=== PATIENT | male | born 1955 | race Caucasian/White ===

== ENCOUNTER 2018-10-22 05:36 | Inpatient (IN) | payer OTHER ==
[2018-10-19 17:03] VITALS: BMI 33.4
[~2018-10-22] VITALS: Ht 190.5 cm; Wt 123.9 kg
[2018-10-22] VITALS (22 sets, daily range): BP systolic 94–140; BP diastolic 53–83; PULSE 72–99; RESP 16–18; Ht 190.5 cm; Wt 123.9 kg
[~2018-10-22 05:36] MED LIST: CLON0.2T5 PO; LEVO-86 PO; LOSA1TAB28 PO
--- NOTE | 2018-10-22 06:45 | PREAC ---
Date/Time of Note Date/Time of Note DATE: 10/22/18 TIME: 06:44 Anesthesia Eval and Record Evaluation Time Pre-Procedure Interview DATE: 10/22/18 TIME: 06:44 Age 63 Sex male NPO: 8 hrs Preoperative diagnosis lumbar spinal stenosis Planned procedure decompressive lumbar laminectomy L3-L4 Past Medical History Past Medical History: Includes Cardio: HTN Endo: Hypothyroid GI: Obesity Surgery & Anesthesia Issues Hx of PONV Meds Anticoagulation: No Beta Sarah within 24 hr: No Reason Beta Sarah not given: Pt. not on B-Sarah Reported Medications Clonidine Hcl* (Clonidine Hcl*) 0.2 Mg Tablet, 0.2 MG PO BID, TAB 10/19/18 Losartan-Hydrochlorothiazide (Losartan-HCTZ) 100-12.5 Mg Tab, 1 TAB PO DAILY, TAB 10/19/18 Levothyroxine Sodium* (Synthroid*) 100 Mcg Tablet, 100 MCG PO BEFORE BREAKFAST, #30 TAB 10/19/18 Current Medications Cefazolin Sodium/ Dextrose 50 ml @ 100 mls/hr PRE-OP ONCE IVPB Last administered on 10/22/18at 06:34; Admin Dose 100 MLS/HR; Start 10/22/18 at 07:00; Stop 10/22/18 at 07:29 Lactated Ringer's 1,000 ml @ 0 mls/hr Q0M IV* Last administered on 10/22/18at 06:34; Admin Dose 20 MLS/HR; Start 10/22/18 at 07:00; Stop 10/22/18 at 20:00 Meds reviewed: Yes Allergies Uncoded Allergies: IV CONTRAST (Allergy, Unknown, 10/19/18) pt says that his kidney shut down Allergies Reviewed: Yes Labs/Studies Labs Reviewed: Reviewed by anesthesiologist Blood Bank Test 10/22/18 06:38 Blood Product Summary Counts test: N/A Studies: ECG, CXR Pre-procedure Exam Airway: Adequate mouth opening, Adequate thyromental dist Mallampati: Mallampati II Teeth: Normal Lung: Normal Heart: Normal ASA Physical Status ASA physical status: 2 Emergency: None Planned Anesthetic General/MAC: ETT Planned Pain Management Parenteral pain med Pre-operative Attestations Prior to commencing anesthesia and surgery, the patient was re-evaluated, there was verification of: *The patient's identity *The results of appropriate recent lab work and preoperative vital signs *The above evaluation not changing prior to induction *Anesthetic plan, risk benefits, alternative and complications discussed with patient/family; questions answered; patient/family understands, accepts and wishes to proceed. SERGE SNEED MD Oct 22, 2018 06:45
[2018-10-22] MEDS ORDERED: LACTATED RINGER'S 1,000 ML IV* SCH (07:00)
[2018-10-22] MEDS ORDERED: CEFAZOLIN 2 GM/50 ML (PMX) 50 ML IVPB ONE (07:00)
--- NOTE | 2018-10-22 07:01 | HPN ---
Date/Time of Note Date/Time of Note DATE: 10/22/18 TIME: 07:01 Interval H&P Admission Note Pt. seen H&P reviewed: No system changes DALI DAMICO MD Oct 22, 2018 07:01
[2018-10-22] MEDS ORDERED: MIDAZOLAM 1 MG/ML 2 ML INJ ONE (07:10)
[2018-10-22] MEDS ORDERED: POLYMYXIN/BACITRACIN 1L IRRIG ONE (07:37)
[2018-10-22] MEDS ORDERED: BUPIVACAINE 0.25% (MPF) 30 ML INJ ONE (07:37)
[2018-10-22] MEDS ORDERED: SUCCINYLCHOLINE CHLORIDE 100 MG/5 ML SYG IV ONE (07:48)
[2018-10-22] MEDS ORDERED: METOCLOPRAMIDE 10 MG INJ ONE (07:48)
[2018-10-22] MEDS ORDERED: PROPOFOL 40 ML ONE (07:48)
[2018-10-22] MEDS ORDERED: ONDANSETRON 4 MG INJ ONE (07:48)
[2018-10-22] MEDS ORDERED: LIDOCAINE 2% (SDV) 5 ML INJ ONE (07:48)
[2018-10-22] MEDS ORDERED: ROCURONIUM 50 MG INJ ONE (07:48)
[2018-10-22] MEDS ORDERED: FAMOTIDINE 20 MG INJ ONE (07:48)
[2018-10-22] MEDS ORDERED: DEXAMETHASONE 4 MG/ML 5 ML INJ ONE (07:48)
[2018-10-22] MEDS ORDERED: EPHEDrine 25 MG/5 ML SYG ONE (07:50)
[2018-10-22] MEDS ORDERED: NEOSTIGMINE 3 MG/3 ML SYRINGE ONE (09:39)
[2018-10-22] MEDS ORDERED: GLYCOPYRROLATE 0.4 MG INJ ONE ×2 (09:39→09:47)
[2018-10-22] MEDS ORDERED: LABETALOL HCL 20MG INJ IV PRN (10:00)
[2018-10-22] MEDS ORDERED: MEPERIDINE 25 MG INJ IV PRN (10:00)
[2018-10-22] MEDS ORDERED: PROCHLORPERAZINE 10 MG INJ IV PRN (10:00)
[2018-10-22] MEDS ORDERED: hydrALAzine 20 MG INJ IV PRN (10:00)
[2018-10-22] MEDS ORDERED: FENTAnyl 50 MCG/ML VIAL IV PRN ×3 (10:00)
[2018-10-22] MEDS ORDERED: ONDANSETRON 4 MG INJ IV PRN ×2 (10:00→10:30)
[2018-10-22] MEDS ORDERED: HYDROmorphONE 1 MG/5 ML IV SYRINGE IV PRN ×3 (10:00)
[2018-10-22] MEDS ORDERED: DIPHENHYDRAMINE 50 MG INJ IV PRN (10:00)
--- NOTE | 2018-10-22 10:25 | PAC ---
Date/Time of Note Date/Time of Note DATE: 10/22/18 TIME: 10:25 Post-Anesthesia Notes Post-Anesthesia Note Last documented vital signs Vital Signs Date Temp Pulse Resp B/P (MAP) Pulse Ox O2 O2 Flow FiO2 Time Delivery Rate 10/22/18 97.8 72 18 140/81 97 Room Air 06:51 (100) Activity: WNL Respiratory function: WNL Cardiovascular function: WNL Mental status: Baseline Pain reasonably controlled: Yes Hydration appropriate: Yes Nausea/Vomiting absent: Yes Comments BP: 122/69 HR: 81 RR: 15 T: 98.5 SaO2: 99% SERGE SNEED MD Oct 22, 2018 10:25
[2018-10-22] MEDS: DEXTROSE 5%-0.45% NACL 1,000 ML IV SCH ×2 (10:27→20:22)
[2018-10-22] MEDS ORDERED: DIAZEPAM 5 MG TAB PO PRN (10:30)
[2018-10-22] MEDS ORDERED: ZOLPIDEM 5 MG TAB PO PRN (10:30)
[2018-10-22] MEDS ORDERED: DIAZEPAM 5 MG/ML SYG IM PRN (10:30)
[2018-10-22] MEDS ORDERED: NALOXONE (0.4 MG/ML) INJ IV PRN (10:30)
[2018-10-22] MEDS ORDERED: HYDROCODONE/APAP (5/325) TAB PO PRN (10:30)
[2018-10-22] MEDS ORDERED: AL HYDROX/MG HYDROX/SIMETH 30 ML CUP PO PRN (10:30)
[2018-10-22] MEDS ORDERED: DIPHENHYDRAMINE 50 MG CAP PO PRN (10:30)
[2018-10-22] MEDS ORDERED: ACETAMINOPHEN 325 MG TAB PO PRN (10:30)
[2018-10-22] MEDS ORDERED: BETHANECHOL 25 MG TAB PO PRN (10:30)
[2018-10-22] MEDS ORDERED: CEPASTAT LOZENGE MT PRN (10:30)
[2018-10-22] MEDS ORDERED: NACL 0.9% 3 ML SYG IV SCH (10:30)
[2018-10-22] MEDS ORDERED: HYDROmorphONE 0.2 MG/ML PCA IV SCH (10:30)
[2018-10-22] MEDS ORDERED: TRIMETHOBENZAMIDE 100 MG/ML VIAL IM PRN (10:30)
[2018-10-22] MEDS ORDERED: PROCHLORPERAZINE 10 MG TAB PO PRN (10:30)
--- NOTE | 2018-10-22 10:35 | SIPON ---
Date/Time of Note Date/Time of Note DATE: 10/22/18 TIME: 10:32 Operative Report Preoperative Diagnosis Spinal Stenosis L3, L4, and L5 right Postoperative Diagnosis same Operation/Procedure Performed Central decompressive laminectomy at L3 Central decompressive laminectomy at L4 Right hemilaminotomy L5 Medial facetectomy and foraminotomy L3-4, L4-5, bilaterally and L5-S1 on the right Cosmetic wound closure (15 cm) Lateral localizing lumbar radiographs (2) Intraoperative nerve monitoring (3.5 hours) Surgeon see signature line photographer assistant Susan Patel PA-C Anesthesia: general Estimated blood loss: 150 - 200 ml's Transfusion Required none Specimen Spinous processes of L3 and L4 Grafts/Implants none Complications none DALI DAMICO MD Oct 22, 2018 10:35
--- NOTE | 2018-10-22 11:36 | NUR ---
PACU TRANSFERRED TO 404A IN STABLE COND. DENIES PAIN OR DISCOMFORT AT THIS TIME , PER PT. PT INSTRUCTED ON USE OF DISTRICT BRANCH MANAGER WITH DILAUDID. REPORT GIVEN TO MS CHAN. Addendum: 10/22/18 at 1425 by JOSE JUAN MADRID RN Amended: Links added.
--- NOTE | 2018-10-22 11:42 | OPR ---
DATE OF OPERATION: 10/22/2018 PREOPERATIVE DIAGNOSIS: Lumbar spinal stenosis at L3, L4, and L5 on the right. POSTOPERATIVE DIAGNOSIS: Lumbar spinal stenosis at L3, L4, and L5 on the right. OPERATION PERFORMED: 1. Central decompressive laminectomy at L3. 2. Central decompressive laminectomy at L4. 3. Right hemilaminotomy, L5. 4. Medial facetectomy and foraminotomy at L3-L4 and L4-L5 bilaterally and L5-S1 on the right. 5. Cosmetic wound closure (15 cm). 6. Lateral localized lumbar radiographs (2). 7. Intraoperative nerve monitoring (2-1/2 hours) SURGEON: Travis Canales MD WARD SECRETARY: Susan Patel PA-C ANESTHESIA: General endotracheal. ANESTHESIOLOGIST: Dai Shabazz MD ESTIMATED BLOOD LOSS: 200 mL, none replaced. DRAINS: Two medium Hemovac drains employed. COMPLICATIONS: None. PERTINENT HISTORY AND PHYSICAL: This is a 63-year-old male who sustained an injury to his back in e course of his employment on 11/01/2015. He has had extensive care since that time, has remained sy mptomatic with back and lower extremity complaints which have been unrelieved by conservative managem ent. He has undergone a number of diagnostic studies including an MRI of the lumbar spine, which dem onstrated lumbar spinal stenosis at L3 and L4, and lateral recess stenosis at L5 on the right. Treat ment options were discussed with the patient, elected to proceed with surgery. OPERATIVE FINDINGS AT SURGERY: A marked central stenosis at L3 and L4 was confirmed along with some lateral recess narrowing on the right. The baseline intraoperative nerve monitoring revealed a decre ase in the L3 potential on the right of 30%, the L4 potential bilaterally of 40%, and the L5 potentia l on the right of 30%. These all returned to normal at the completion of the surgery. OPERATIVE PROCEDURE: With the patient in supine position after satisfactory induction of general end otracheal anesthesia by Dr. Shabazz, the patient was turned to the prone kneeling position over the [facility] frame. All pressure points were carefully padded. The back was prepped and draped in usual cristopher rile fashion. Athrombic pumps had been applied to the legs below the knees to prevent venous stasis during and after procedure. An indwelling Herndon catheter was also placed preoperative to facilitate bladder drainage during and after the procedure. Two spinal needles were placed next to what was fel t to be the L3 and L4 spinous processes. A lateral roentgenogram was taken which confirmed anatomic localization. A 15 cm incision was then carried out midline from L3 to the sacrum through skin and s ubcutaneous tissue to deep fascia after skin was infiltrated with 0.25% Marcaine without epinephrine for postoperative analgesia. Superficial retractors were placed and hemostasis secured with electroc autery. Throughout the procedure, copious amounts of antibacterial irrigating solution was used to p eriodically irrigate the wound. The fascia was incised in midline with a hot knife and a bilateral s ubperiosteal dissection carried out from L3 to the sacrum. Deep retractors were placed and deep hemo stasis secured with electrocautery. A second intraoperative radiograph was taken with Isaac clamps placed on what was felt to be the spinous process of L3, L4, and L5. This was confirmed with a secon d x-ray. A central decompressive laminectomy at L3 and L4 was then carried out using Maximus right-a ngle bone rongeur, Leksell rongeur, Kerrison punches and curettes. Ligamentum flavum was incised wit h sharp dissection. The operating microscope was moved into place. A medial facetectomy and foramin otomy was then accomplished using small hand osteotome, mallet, Kerrison punches and curettes. Atten tion was then turned to the hemilamina of L5 on the right, where hemilaminotomy was carried out using a Leksell rongeur, Kerrison punches and curettes. Ligamentum flavum was excised with sharp dissecti on. The operating microscope was then moved into place. A medial facetectomy and foraminotomy was t hen accomplished using small hand osteotome, mallet, Kerrison punches and curettes. A thorough searc h of the floor canal was made with an arthroscopic probe for extruded disk fragments and none were en countered. The anesthesiologist was asked to perform a Valsalva maneuver for 40 mmHg, and no spinal fluid leak was noted. The wound was then closed in layers over 2 medium Hemovac drains, one below th e fascia, one above the fascia using #1 Stratafix sutures on deep parallel lumber musculature and ludwig p fascia of the back, 2-0 Stratafix sutures on the subQ tissue, and a 4-0 Vicryl subcuticular cosmeti c closing suture on the skin. Dermabond and sterile compressive dressings were applied. The patient , having tolerated procedure well, was then turned to a supine position onto his bed and extubated by Dr. Shabazz. He was transported to the recovery room in satisfactory condition. At the conclusion of the procedure, sponge, instrument, and needle counts were all correct. NEED FOR TURKEY ROLL MAKER: During this spinal surgical procedure, my kindergarten instructional assistant was used to retract and protect the spinal nerves and dural sac. My kindergarten instructional assistant also employed the suction catheters to afua jazz blood from the surgical field to improve visualization of the neural structures. The kindergarten instructional assistant was medically necessary to facilitate the completion of the surgery in a safe and expeditious manner. [facility] [place] regulations, as well as hospital bylaws, preclude the use of non-licensed health care personnel such as operating room technicians, to perform these functions. Throughout the procedure, neural monitoring was carried out by [employer] including EMG, SSEP a nd MEP monitoring of the L3, L4, L5 and S1 nerve roots bilaterally along with spinal cord potentials. These were interpreted in real time by Dr. Stevo Yao. Dictated By: TRAVIS CANALES MD TM/NTS Conf#: [id number] DID#: [id number] CC: TRAVIS CANALES MD; SHARON NOVA MD;*[facility]*
[2018-10-22] MEDS: CEFAZOLIN 1 GM/50 ML (PMX) 50 ML IVPB SCH ×3 (11:43→23:33)
--- NOTE | 2018-10-22 12:41 | CONS ---
DATE OF ADMISSION: 10/22/2018 DATE OF CONSULTATION: TYPE OF CONSULTATION: Medical. Thank you, Dr. Damico, for asking me to participate in medical management of this patient. REASON FOR CONSULTATION: To manage the patient's hypertension and hypothyroidism. HISTORY OF PRESENT ILLNESS: This 63-year-old man was admitted today and underwent a lumbar spine henrry marla by Dr. Damico. The patient had a central decompression lumbar laminectomy at level L2, L3, L4 and right L5. He underwent a central decompression laminectomy at L3, at L4 and right hemilaminotom y at L5. The patient was diagnosed with spinal stenosis at L3, L4 and L5. He was having low back pa in with radiation into both legs. He was injured at work on 11/01/2015. The patient was cleared pre operatively by me and was seen for cardiology by Dr. Hankins. The patient is awake and alert. He has no complaints other than some incisional back pain. He denies chest pain or shortness of breath. ALLERGIES: HE IS ALLERGIC TO RADIOCONTRAST DYE WHICH CAUSED A KIDNEY SHUTDOWN. PAST MEDICAL HISTORY: Essential hypertension, thyroid disease. PAST SURGICAL HISTORY: Appendectomy, carpal tunnel release, chest wall incision and drainage, histor y of orthopedic surgery. SOCIAL HISTORY: He is . He has never smoked. He does not drink alcohol. CURRENT MEDICATIONS: Include the following: includes the followin. Clonidine 0.2 mg twice a day. 2. Losartan 100 mg with hydrochlorothiazide 12.5 mg a day. 3. Synthroid 100 mcg a day. PHYSICAL EXAMINATION: GENERAL: At this time reveals a well-developed man in no apparent distress. VITAL SIGNS: Pulse of 86, respirations 17, blood pressure 140/76, O2 saturation 97% on 2 liter nasal cannula. HEENT: Head is normocephalic. Eyes: Extraocular muscles are intact. Nose and mouth are normal. NECK: Supple. No neck vein distention. LUNGS: Clear to auscultation. HEART: Regular rate, rhythm. No murmurs, gallops or rubs. ABDOMEN: Soft, nontender. EXTREMITIES: No peripheral edema. IMPRESSION: This patient is now postop a lumbar spine surgery. He is awake and alert. He is having some incisional back pain which is being controlled with current medication. He has no chest pain o r shortness of breath. He seems comfortable. I will manage the patient's hypertension and hypothyro idism. PLAN: 1. Resume routine medications. 2. Check labs in the morning. 3. Postop lumbar spine surgery protocol. 4. I will follow the patient along with you. Dictated By: SHARON NOVA MD ND/NTS Conf#: [id number] DID#: [id number] CC: DALI DAMICO MD;*EndCC*
[2018-10-22] MEDS ORDERED: SOD CHLORIDE 0.9% 250 ML IV ONE (13:30)
--- NOTE | 2018-10-22 13:57 | NUR ---
NURSE NOTE: I called Dr. Jones about low BP trend; order to give 250ml bolus of NS over an hour; if bp does not improve (SBP >100) Order to give an additional 250ml NS bolus.
--- NOTE | 2018-10-22 15:16 | NUR ---
PT EVALUATION NOTE: Therapy day number 1 Evaluation Start Time 13:50 Evaluation End Time 14:45 Evaluation Total Time 55 min Subjective Current complaint of pain Pain Scale NUMERIC Pain Intensity 4 (0-10) Patient Stated Goal for Pain Relief 0 (0-10) Pain Level Comment surgical site Pre Treatment Vital Signs Stable Yes - BP 122/66, HR 88 Supine to Sit Moderate Assist Transfer Sit to Stand Ability Contact Guard Assist Bed Mobility Sit to Supine Moderate Assist Sitting Tolerance 10 min Additional Mobility Comments sit <-> stand with FWW Gait Assist Levels Contact Guard Assist Assistive Devices Front Wheel Walker Ambulation Distance 60 feet Additional Gait Comments able to manage FWW w/out assistance,LS corset in place Weight Bearing Assessment Label Bilat Lower Extremity Weight Bearing Status Full Weight Bearing Static Sitting Balance Good Dynamic Sitting Balance Good Standing Static Balance Fair plus Dynamic Standing Balance Fair plus Additional Balance Assessments Comments standing with FWW Safety Judgement Good Activity Tolerance Good Equipment Present A pump Herndon Catheter IV pump DRY WALL INSTALLER Post Treatment Pain Intensity 4 0-10 Total Minutes 55 Total Units 4 PT Technical Record Comment Patient is a 63 year old male who today underwent a central decompression laminectomy at L3, at L4 and right hemilaminotomy at L5. PMH: HTN, hypothyroidism, obesity PRECAUTIONS: back precautions, log roll, LS corset when OOB PLOF: Patient lives with his in a single story house with no stairs to enter. Prior to hospitalization, patient was independent with all functional mobility without an assistive device. CLOF: Lanie CHAN cleared patient for PT evaluation. Patient agreeable to participate with PT evaluation, c/o incisional pain rated at 4/10, on DRY WALL INSTALLER. Received patient in semi-supine position in bed, BP 122/66, HR 88. Patient educated in back precautions, log roll technique, fall prevention and purpose of PT evaluation. Patient required min/mod assist to bring LEs off the bed and to bring trunk to upright sitting position at the EOB using the log roll technique. Donned LS corset in sitting with max assist. Patient c/o some nausea and dizziness in sitting, BP 136/67, HR 91. Sit to stand with height of bed elevated with CGA and FWW. Gait training x 60 feet with FWW and CGA, slow chata, reciprocal gait pattern. Patient returned to sitting at EOB with CGA, after ambulation BP 133/73, HR 90. Sitting to supine using log roll technique with mod assist to lift LEs into bed. Patient positioned for comfort, all needs met, call light within reach. Lanie CHAN notified of patient's status at the end of the session. PT RECOMMENDATION: Patient is s/p lumbar surgery with impaired functional mobility. Patient will benefit from skilled inpatient PT intervention to address bed mobility, transfers and ambulation with education in proper body mechanics and back precautions. Anticipate discharge home with spouse's assistance once cleared by MD. Patient will need FWW for home use.
--- NOTE | 2018-10-22 19:29 | NUR ---
END OF SHIFT NOTE: Patient arrived from PACU at 1155am; patient was oriented to room and instructed on CUPOLA TENDER and bed use; Patient verbalized understanding. Patient has nelson draining to gravity; patient tolerated clear diet, but when advanced diet to regular; patient reported nausea and vomited 20ml; patient given Zofran, but not effective; endorsed to nightshift RN. Patient had one episode of low BP; patient given NS bolus with improvement in BP; patient had no other events noted.
[2018-10-22] MEDS: RANITIDINE 150 MG TAB PO SCH (20:23)
[2018-10-23 00:02] VITALS: BP 140/73; PULSE 98; RESP 19
[2018-10-23] MEDS: DEXTROSE 5%-0.45% NACL 1,000 ML IV SCH ×3 (01:42→16:27)
[2018-10-23 03:11] VITALS: BP 113/57; PULSE 88; RESP 16
[2018-10-23] MEDS: CEFAZOLIN 1 GM/50 ML (PMX) 50 ML IVPB SCH (05:21)
--- NOTE | 2018-10-23 05:35 | NUR ---
PT HAD ONE EPISODE OF EMESIS AND GIVEN TIGAN X1 WITH NO FURTHER INCIDENTS. UP TO BR WITH BM RESULTS. USING SOFTWARE CONFIGURATION MANAGER SPORADICALLY. STATES PAIN IS MOSTLY UNDER CONTROL. VSS, AFEBRILE. NO OTHER CHANGES NOTED IN PT'S STATUS. HEMOVAC PATENT WITH 100CC OUTPUT, GAVIRIA PATENT DRAINING TO GRAVITY. AT THIS TIME RESTING QUIETLY IN BED, NO SS DISCOMFORT NOTED. WILL CONTINUE POC
[2018-10-23] MEDS ORDERED: LEVOTHYROXINE 100 MCG TAB PO SCH (07:00)
--- NOTE | 2018-10-23 07:07 | PN ---
Date/Time of Note Date/Time of Note DATE: 10/23/18 TIME: 07:05 Assessment/Plan Lines/Catheters IV Catheter Type (from Nrsg): Saline Lock Herndon in Place (from Nrsg): Yes Subjective 24 Hr Interval Summary The patient is postop day #1 following a decompressive laminectomy at L3 and L4, and a right hemilaminotomy L5. He is resting comfortably in bed. Neurovascular structures are intact distally. He is afebrile. He has some pain in his right buttock. A Herndon catheter is in place. A.m. lab work is unremarkable. His Hemovac output since midnight is 100 cc, and will be observed. He will be mobilized as tolerated by physical therapy. I will discontinue his Herndon catheter this morning. Exam/Review of Systems Vital Signs Vitals Vital Signs Date Temp Pulse Resp B/P (MAP) Pulse Ox O2 O2 Flow FiO2 Time Delivery Rate 10/23/18 18 05:00 10/23/18 98.0 88 113/57 97 Nasal 2.0 03:11 (75) Cannula Intake and Output 10/22/18 10/22/18 10/23/18 1515:00 23:00 07:00 IntakeIntake Total 2500 ml 670 ml 1980 ml OutputOutput Total 490 ml 650 ml 2300 ml BalanceBalance 2010 ml 20 ml -320 ml Results Result Diagram: 10/23/18 0442 10/23/18 0442 DALI DAMICO MD Oct 23, 2018 07:07
[2018-10-23] MEDS ORDERED: BETHANECHOL 25 MG TAB PO PRN (08:00)
[2018-10-23 08:38] VITALS: BP 129/80; PULSE 75; RESP 16
--- NOTE | 2018-10-23 08:44 | NUR ---
PT NOTE Therapy day number 2 Subjective Current complaint of pain Pain Scale NUMERIC Pain Intensity 3 (0-10) Patient Stated Goal for Pain Relief 0 (0-10) Pain Level Comment surgical site pain, LLE anteromedial thigh pain/cramp with gait training Pre Treatment Vital Signs Stable Yes Exercise Assessment Label Bilat Lower Extremity Exercise Type Active ROM Additional Exercise Comments bed mobility tr via log rolling using BR, bed flat, Radha repositioning Transfer Training Start Time 08:44 Supine to Sit Minimum Assist Transfer Sit to Stand Ability Stand by Assist Bed Mobility Sit to Supine Minimum Assist Sitting Tolerance 10 min Additional Mobility Comments sit <-> stand with FWW, LS corset donned/doffed with Radha Transfer Training End Time 08:59 Total Transfer Training Time 15 min (8-127) Gait Training Start Time 08:59 Gait Assist Levels Stand by Assist Assistive Devices Front Wheel Walker Ambulation Distance 100 feet Additional Gait Comments 100'+ 60'x3, 3 stand rest stop 2/2 pain, flexed post, decr cadenc, no LOB Gait Training End Time 09:22 Total Gait Training Treatment Time 23 min (8-127) Weight Bearing Assessment Label Bilat Lower Extremity Weight Bearing Status Full Weight Bearing Static Sitting Balance Good Dynamic Sitting Balance Good Standing Static Balance Fair plus Dynamic Standing Balance Fair plus Additional Balance Assessments Comments With FWW Safety Judgement Good Activity Tolerance Good Equipment Present A pump Drains Herndon Catheter IV pump PORCELAIN TURNER Post Treatment Pain Intensity 7 0-10 Total Treament Time 38 min (8-127) Total Minutes 38 Total Units 3 PT Technical Record Comment PT NOTE S: Pt agreeable to PT, cleared for PT per RN Laura. O: Pt received semifowler in bed, alert and oriented. Performed bed mobility, transfer tr, and gait tr per tech record above with FWW and occasional trapeze use for repositioning in bed, Radha to SBA. Pt BTB and positioned for comfort post tx, in no apparent distress, RN present in room, needs in reach. A: Pt buddy tx well, improved tolerance for PT and decreased asssit since initial eval. P: Cont POC.
[2018-10-23] MEDS ORDERED: ASCORBIC ACID 500 MG TAB PO SCH (09:00)
[2018-10-23] MEDS ORDERED: DOCUSATE SODIUM 100 MG CAP PO SCH (09:00)
[2018-10-23] MEDS ORDERED: LOSARTAN 50 MG TAB PO SCH (09:00)
[2018-10-23] MEDS: RANITIDINE 150 MG TAB PO SCH (09:19)
[2018-10-23] MEDS: FERROUS SULFATE (EC) 325 MG TAB PO SCH ×2 (09:19→15:17)
[2018-10-23] MEDS: HYDROCODONE/APAP (5/325) TAB PO PRN ×3 (09:51→18:05)
--- NOTE | 2018-10-23 11:12 | NUR ---
PT NOTE Therapy day number 2 Subjective Current complaint of pain Pain Scale NUMERIC Pain Intensity 6 (0-10) Patient Stated Goal for Pain Relief 0 (0-10) Pain Level Comment surgical site pain, premedicated Pre Treatment Vital Signs Stable Yes Exercise Assessment Label Bilat Lower Extremity Exercise Type Active ROM Additional Exercise Comments bed mobility tr via log rolling using BR, bed flat Transfer Training Start Time 11:12 Supine to Sit Contact Guard Assist Transfer Sit to Stand Ability Stand by Assist Bed Mobility Sit to Supine Contact Guard Assist Sitting Tolerance 5 min Additional Mobility Comments sit <-> stand with FWW, LS corset donned with Radha/doffed indep Transfer Training End Time 11:22 Total Transfer Training Time 10 min (8-127) Gait Training Start Time 11:22 Gait Assist Levels Stand by Assist Assistive Devices Front Wheel Walker Ambulation Distance 80 feet Additional Gait Comments 80'x3, 2 stand rest stop, flex postur, decr cadenc, incr relianc AD/BUE Gait Training End Time 11:36 Total Gait Training Treatment Time 14 min (8-127) Weight Bearing Assessment Label Bilat Lower Extremity Weight Bearing Status Full Weight Bearing Static Sitting Balance Good Dynamic Sitting Balance Good Standing Static Balance Fair plus Dynamic Standing Balance Fair plus Additional Balance Assessments Comments with FWW Safety Judgement Good Activity Tolerance Good Equipment Present A pump Drains Post Treatment Pain Intensity 8 0-10 Total Treament Time 24 min (8-127) Total Minutes 24 Total Units 2 PT Technical Record Comment PT NOTE S: Pt agreeable to PT, cleared for PT per RN Laura. O: Pt received semifowler in bed, alert and oriented. Performed bed mobility, transfer tr, and gait tr per tech record above with FWW and occasional trapeze use for repositioning in bed, CGA to SBA. Pt ed fro spinal precautions. Pt BTB and positioned for comfort post tx, in no apparent distress, RN present in room, needs in reach. A: Pt buddy tx well, continues to be limited be pain, pain is worst with sup<>sit transfer despite fair return demo log rolling/spinal precautions P: Cont POC.
--- NOTE | 2018-10-23 13:58 | CONS ---
Assessment/Plan Assessment/Plan Hospital Course (Demo Recall) 1. He is 1 day post op a lumbar spine surgery . He is up with PT and is doing well . He is afebrile and BP is well controlled . Lab tests for today are acceptable . Consultation Date/Type/Reason Admit Date/Time Oct 22, 2018 at 05:36 Initial Consult Date Type of Consult medicine Date/Time of Note DATE: 10/23/18 TIME: 13:52 24 HR Interval Summary Free Text/Dictation Kane is now 1 day post op a lumbar spine surgery . He is up walking with PT . Constitutional: no complaints, improved Exam/Review of Systems Exam Vitals Vital Signs Date Temp Pulse Resp B/P (MAP) Pulse Ox O2 O2 Flow FiO2 Time Delivery Rate 10/23/18 18 09:30 10/23/18 97.8 75 129/80 96 Nasal 08:38 (96) Cannula 10/23/18 2.0 03:11 Intake and Output 10/22/18 10/22/18 10/23/18 1515:00 23:00 07:00 IntakeIntake Total 2500 ml 670 ml 1980 ml OutputOutput Total 490 ml 650 ml 2300 ml BalanceBalance 2010 ml 20 ml -320 ml Constitutional: alert, oriented Respiratory: clear to auscultation Cardiovascular: regular rate and rhythm Gastrointestinal: soft, non-tender Musculoskeletal: nl extremities to inspection Results Result Diagram: 10/23/18 0442 10/23/18 0442 Results 24hrs Laboratory Tests Test 10/23/18 04:42 10/23/18 07:47 10/23/18 10:00 Hemoglobin 12.9 L Hematocrit 37.8 L Sodium Level 140 Potassium Level 4.1 Chloride Level 102 Carbon Dioxide Level 29 Anion Gap 9 Blood Urea Nitrogen 13 Creatinine 0.67 Est Glomerular Filtrat > 60 Rate mL/min Glucose Level 141 Calcium Level 9.2 Lab Scanned Report REFERENCE LAB Urine Color YELLOW Urine Clarity CLEAR Urine pH 5.0 Urine Specific [place] 1.015 Urine Ketones NEGATIVE Urine Nitrite NEGATIVE Urine Bilirubin NEGATIVE Urine Urobilinogen NEGATIVE Urine Leukocyte Esterase NEGATIVE Urine Microscopic RBC 5 Urine Microscopic WBC 2 Urine Hemoglobin 2+ H Urine Glucose NEGATIVE Urine Total Protein NEGATIVE Medications Medication Current Medications Dextrose/Sodium Chloride 1,000 ml @ 100 mls/hr Q10H IV Last administered on 10/23/18at 01:42; Admin Dose 100 MLS/HR; Start 10/22/18 at 10:27 Acetaminophen/ Hydrocodone Bitart ([place] (5/325)) 1 tab Q4H PRN PO .PAIN 1-5; Start 10/22/18 at 10:30 Acetaminophen/ Hydrocodone Bitart ([place] (5/325)) 2 tab Q4H PRN PO .PAIN 6-10 Last administered on 10/23/18at 09:51; Admin Dose 2 TAB; Start 10/22/18 at 10:30 Zolpidem Tartrate (Ambien) 5 mg HS PRN PO .INSOMNIA; Start 10/22/18 at 10:30 Prochlorperazine (Compazine) 10 mg Q4H PRN PO NAUSEA/VOMITING; Start 10/22/18 at 10:30 Trimethobenzamide HCl (Tigan) 200 mg Q4H PRN IM NAUSEA/VOMITING Last administered on 10/22/18at 19:27; Admin Dose 200 MG; Start 10/22/18 at 10:30 Ondansetron HCl (Zofran Inj) 4 mg Q6H PRN IV NAUSEA/VOMITING Last administered on 10/22/18at 18:26; Admin Dose 4 MG; Start 10/22/18 at 10:30 Al Hydrox/Mg Hydrox/Simethicone (Mag-Al Plus) 15 ml Q4H PRN PO .CONSTIPATION; Start 10/22/18 at 10:30 Docusate Sodium (Colace) 100 mg BID PO Last administered on 10/23/18at 09:19; Admin Dose 100 MG; Start 10/23/18 at 09:00 Acetaminophen (Tylenol Tab) 650 mg Q4H PRN PO TEMP GREATER THAN 101F OR BUSH; Start 10/22/18 at 10:30 Ascorbic Acid (Vitamin C) 1,000 mg BID PO Last administered on 10/23/18 09:19; Admin Dose 1,000 MG; Start 10/23/18 at 09:00 Ferrous Sulfate (Ferrous Sulfate (Ec)) 325 mg TID PO Last administered on 10/23/18 09:19; Admin Dose 325 MG; Start 10/23/18 at 09:00 Ranitidine HCl (Zantac) 150 mg BID PO Last administered on 10/23/18 09:19; Admin Dose 150 MG; Start 10/22/18 at 21:00 Diazepam (Valium) 5 mg Q4H PRN PO .MUSCLE SPASM; Start 10/22/18 at 10:30 Diazepam (Valium) 5 mg Q4H PRN IM .MUSCLE SPASM; Start 10/22/18 at 10:30 Phenol (Cepastat Lozenge) 1 lozenge PRN PRN MT .SORE THROAT; Start 10/22/18 at 10:30 Bethanechol Chloride (Urecholine) 25 mg PRN PRN PO .UNABLE TO VOID Last administered on 10/23/18 09:16; Admin Dose 25 MG; Start 10/22/18 at 10:30 Diphenhydramine HCl (Benadryl) 50 mg Q6H PRN PO .PRURITUS; Start 10/22/18 at 10:30 IV Flush (NS 3 ml) 3 ml PER PROTOCOL IV ; Start 10/22/18 at 10:30 Hydromorphone HCl (Dilaudid CORE DRIER) Q4PCA IV Last administered on 10/22/18at 10:58; Admin Dose 6 MG; Start 10/22/18 at 10:30 Naloxone HCl (Narcan) 0.2 mg Q2M PRN IV RR 8 BREATHS/MIN OR LESS; Start 10/22/18 at 10:30 Clonidine (Catapres) 0.2 mg BID PO Last administered on 10/23/18 09:17; Admin Dose 0.2 MG; Start 10/22/18 at 21:00 Levothyroxine Sodium (Synthroid) 100 mcg BEFORE BREAKFAST PO Last administered on 10/23/18 06:05; Admin Dose 100 MCG; Start 10/23/18 at 07:00 Losartan Potassium (Cozaar) 100 mg DAILY PO Last administered on 10/23/18 09:18; Admin Dose 100 MG; Start 10/23/18 at 09:00 SHARON NOVA MD Oct 23, 2018 13:58
--- NOTE | 2018-10-23 14:17 | NUR ---
ENDORSEMENT Report given to Lanie for continuity of care.
--- NOTE | 2018-10-23 14:50 | NUR ---
PT NOTE Therapy day number 2 Subjective Current complaint of pain Pain Scale NUMERIC Pain Intensity 6 (0-10) Patient Stated Goal for Pain Relief 0 (0-10) Pain Level Comment back pain has been improving, waiting on pain meds Transfer Training Start Time 14:50 Transfer Sit to Stand Ability Modified Independent Bed Mobility Sit to Supine Modified Independent Bed Transfer Ability Modified Independent Chair Transfer Ability Modified Independent Toileting Ability Modified Independent Additional Mobility Comments sit-supine log roll: requires more time, but can perform Michi Transfer Training End Time 15:00 Total Transfer Training Time 10 min (8-127) Gait Training Start Time 15:00 Gait Assist Levels Modified Independent Assistive Devices Front Wheel Walker Ambulation Distance 350 feet Additional Gait Comments reciprocal steps, light UE support, slightly upright posture Gait Training End Time 15:20 Total Gait Training Treatment Time 20 min (8-127) Static Sitting Balance Good Dynamic Sitting Balance Good Standing Static Balance Good Dynamic Standing Balance Good Safety Judgement Good Activity Tolerance Good Equipment Present A pump Drains Post Treatment Pain Intensity 4 0-10 Total Treament Time 30 min (8-127) Total Minutes 30 Total Units 2 PT Technical Record Comment S: Pt found sitting EOB, is agreeable to PT. RN cleared pt for activity. O: Pt was seen for bed mobility, transfers, gait training, then assisted back to bed with call light nearby, bed alarm on, in the care of the RN. Pt reports mild increase of pain with activity, "spasms." Demonstrated log roll to return to bed. RN informed of pt response to activity. A: Pt demonstrates good strength, coordination, and mobility with FWW, able to ambulate with upright posture, reciprocal steps, light UE support. Trialed 10' ambulation with no AD, and pt demonstrated reduced confidence, reduced step length and chata, requiring support of handrail on the wall. Pt has met his goals and is safe to ambulate with FWW. P: Continue POC. Expect to DC from PT after additional treatment in the PM to review bed mobility and transfer technique.
[2018-10-23 15:56] VITALS: BP 102/63; PULSE 78; RESP 19
--- NOTE | 2018-10-23 16:45 | NUR ---
PT: Attempted PT, however pt refused stating that he is independent with bed mobility techniques and spinal precautions. Pt has met their goals, is discharged from PT.
--- NOTE | 2018-10-23 16:49 | NUR ---
CM NOTES: MET WITH THE PT AT THE BEDSIDE. PT HAS ELEVATED TOILET SEAT, FWW, SHOWER CHAIRS AND SCD AT HOME ALREADY. THERE ARE NO OTHER DME NEEDS FOR THIS PT. PLAN: DC HOME WITH FAMILY. FANTA MATA LEAD CM [phone]
--- NOTE | 2018-10-23 18:36 | NUR ---
DISCHARGE NOTE: Patient was educated on all discharge instructions and verbalized understanding. Patient's IV access was removed with catheter tip intact and dry gauze applied to site. Patient was medicated prior to discharge. Patient had no questions at time of discharge. Patient stable for discharge.
--- NOTE | 2018-10-29 09:10 | DS ---
Date/Time of Note Date/Time of Note DATE: 10/29/18 TIME: 09:09 Discharge Summary Admission/Discharge Info Admit Date/Time Oct 22, 2018 at 05:36 Discharge Date/Time Oct 23, 2018 at 18:10 Discharge Diagnosis Lumbar spinal stenosis at L3, L4, and L5 on the right. Patient Condition: Good Hospital Course Patient did well postoperatively. His diet and activity were advanced as tolerated. His pain was well controlled. He was discharged home in good condition on postop day #1 with strict discharge and follow-up instructions. Home Meds Reported Medications Clonidine Hcl* (Clonidine Hcl*) 0.2 Mg Tablet, 0.2 MG PO BID, TAB 10/19/18 Losartan-Hydrochlorothiazide (Losartan-HCTZ) 100-12.5 Mg Tab, 1 TAB PO DAILY, TAB 10/19/18 Levothyroxine Sodium* (Synthroid*) 100 Mcg Tablet, 100 MCG PO BEFORE BREAKFAST, #30 TAB 10/19/18 Follow-up Plan Follow up with Dr. Canales in 1-2 weeks. Primary Care Provider Not On Staff Doctor ILIANA MOTA Oct 29, 2018 09:10
== END 2018-10-23 18:10 | disposition home or self-care (01) | DRG 517 ==
LOC: REC 05:36 → MS1 11:35
PROVIDERS: ADMIT Orthopaedic Surgery; ATTEND Orthopaedic Surgery
PROC: 01NB0ZZ Release Lumbar Nerve, Open Approach (ICD-10-PCS; principal; 2018-10-22 07:00)
DX: M48.061 Spinal stenosis, lumbar region without neurogenic claudication (principal); I10 Essential (primary) hypertension; E03.9 Hypothyroidism, unspecified
CPT/HCPCS: 72020; 80048; 81001; 85014; 85018; 86850; 86900; 86901; 86920; 87086; 88304; 88311; 97116; 97162; 97530; J0690; J1100; J1170; J2250; J2405; J2710; J2765; J3010; J3250; J7040; J7042